=== PATIENT | male | born 1965 | race Caucasian/White ===

== ENCOUNTER 2016-06-21 18:54 | Observation (INO) | payer OTHER ==
[2016-06-21] MEDS ORDERED: NS 1,000 ML IV ONE (19:29)
[2016-06-21] MEDS ORDERED: HYDROmorphONE/DILAUDID 1 MG/ML SYR IVP ONE (19:29)
[2016-06-21] MEDS ORDERED: FAMOTIDINE 20 MG in NS 100 ML IV ONE (19:29)
[2016-06-21 19:46] LABS: % IMMATURE GRANULYOCYTES 0.2 % (0.0-1.1); ABSOLUTE IMMATURE GRANULOCYTES 0.02 10^3/uL (0.00-0.10); ADD DIFF? NO; ADD MORPH? NO; ADD SCAN? NO; ATYPICAL LYMPHOCYTE FLAG 30 (0-99); FRAGMENT RBC FLAG 0 (0-99); HEMATOCRIT 43.3 % (40.0-51.0); HEMOGLOBIN 15.1 g/dL (13.7-17.5); LEFT SHIFT FLG 0 (0-99); LIPEMIA HEMOLYSIS FLAG 90 (0-99); MEAN CELL HEMOGLOBIN CONCENTR. 34.9 g/dL (32.4-36.7); MEAN CELL VOLUME 94.5 fL (81.5-99.8); MEAN PLATELET VOLUME 10.4 fL (8.7-11.7); PLATELET CLUMPS FLAG 20 (0-99); PLATELET COUNT 232 10^3/uL (150-400); RED BLOOD CELL COUNT 4.58 10^6/uL (4.40-6.38); RED CELL DISTRIBUTION WIDTH 11.9 % (11.5-15.2)
[2016-06-21 20:00] LABS: ALANINE AMINOTRANSFERASE 32 IU/L (21-72); ALBUMIN 3.9 g/dL (3.5-5.0); ALKALINE PHOSPHATASE 54 IU/L (38-126); ANION GAP 15 mEq/L (8-16); ASPARTATE AMINOTRANSFERASE 19 IU/L (17-59); BILIRUBIN,TOTAL 0.7 mg/dL (0.1-1.4); BILIRUBIN-CONJUGATED 0.4 mg/dL (0.0-0.5); BILIRUBIN-UNCONJUGATED 0.3 mg/dL (0.0-1.1); CARBON DIOXIDE 24 mEq/l (22-31); CHLORIDE 104 mEq/L (97-110); CREATININE 1.1 mg/dL (0.7-1.3); GLOMERULAR FILTRATION RATE > 60; GLUCOSE 93 mg/dL (70-100); POTASSIUM 3.7 mEq/L (3.5-5.2); SODIUM 143 mEq/L (134-144); TOTAL PROTEIN 6.9 g/dL (6.3-8.2)
--- NOTE | 2016-06-21 20:06 | UCPHY ---
H & P Time Seen by Provider: 06/21/16 19:30 Patient Type: New HPI/ROS: HPI Gallbladder attack. 51-year-old male by private vehicle with his . This patient reports that he has had on and off biliary colic secondary to gallstones for years. He reports that usually the attacks last hour to up to a day and then resolved. He reports that he has had right upper quadrant pain identical to his previous gallbladder attacks ongoing now for 4-5 days. Last meal was about an hour prior to arrival. ROS: Constitutional: Intermittent fever, no chills. No weakness. Eyes: No discharge. No changes in vision. ENT: No sore throat. No nasal congestion or rhinorrhea. Respiratory: No cough. No shortness of breath. Cardiac: No chest pain, no palpitations. Gastrointestinal: As above, no vomiting, no diarrhea. Genitourinary: No hematuria. No dysuria or increased frequency with urination. Musculoskeletal: No back pain. No neck pain. No myalgias or arthralgias. Skin: No rashes. Neurological: No headache. No focal weakness or altered sensation. Past medical history: As above. Otherwise denies. Social history: Here with his . Physical Exam: General Appearance: Alert, no distress. This patient is responding to questions appropriately and in full sentences. This patient appears well- hydrated and well-nourished. Eyes: Pupils equal and round no pallor or injection. No lid edema, erythema or injection. Respiratory: There are no retractions, lungs are clear to auscultation with good air movement bilaterally. Cardiovascular: Regular rate and rhythm. No murmur. Gastrointestinal: Abdomen is soft with right upper quadrant tenderness on palpation, no masses, bowel sounds normal. No focal tenderness at McBurney's point. Positive Zazueta sign. Neurological: Motor sensory function is grossly intact. Cranial nerves are normal. Gait is normal. Skin: Warm and dry, no rashes. Musculoskeletal: Neck is supple and nontender. Extremities are symmetrical. All joints range without pain or impingement. Psychiatric: No agitation. No depression. Database: EKG: Imaging: Bedside ultrasound: Shows a swollen gallbladder, multiple free stones, probable stone lodged in the gallbladder neck. No free fluid. No wall thickening. Study limited secondary to quality of machine and lighting. Study performed and interpreted by myself. Procedures: Emergency department course: IV was placed. He was placed on a top executive. he was started on IV normal saline with 1 L to be given over the next hour. He was initially given 0.5 mg of IV hydromorphone and 20 mg of IV Pepcid. Blood work sent. 8:15 p.m., patient re-evaluated. Results of blood work discussed with him and his . Advised he go to the [facility] Emergency Department for formal ultrasound study to further evaluate his gallbladder. They are in agreement. His knows where the hospital is in will take him there immediately on discharge. I called the emergency department at [facility]. I spoke with physician accounts receivable assistant Ralph. His case was discussed. They are expecting him and will obtain a formal right upper quadrant ultrasound on his arrival. Differential Diagnosis: The differential diagnosis on this patient includes but is not limited to biliary colic, gallstones, early cholecystitis. This represents a partial list of diagnoses considered. These considerations are based on history, physical exam, past history, reassessment and diagnostic testing. Smoking Status: Never smoked Constitutional: Initial Vital Signs Temperature (C) 36.6 C 06/21/16 19:14 Heart Rate 80 06/21/16 19:14 Respiratory Rate 18 06/21/16 19:14 Blood Pressure 111/62 06/21/16 19:14 O2 Sat (%) 98 06/21/16 19:14 O2 Delivery Mode Room Air Allergies/Adverse Reactions: No Known Allergies Allergy (Unverified 06/21/16 19:13) Medical Decision Making - Data Points Laboratory Results: Laboratory Results 06/21/16 19:40 06/21/16 19:40 06/21/16 19:40 WBC 9.26 10^3/uL (3.80-9.50) RBC 4.58 10^6/uL (4.40-6.38) Hgb 15.1 g/dL (13.7-17.5) Hct 43.3 % (40.0-51.0) MCV 94.5 fL (81.5-99.8) MCH 33.0 pg (27.9-34.1) MCHC 34.9 g/dL (32.4-36.7) RDW 11.9 % (11.5-15.2) Plt Count 232 10^3/uL (150-400) MPV 10.4 fL (8.7-11.7) Neut % (Auto) 50.7 % (39.3-74.2) Lymph % (Auto) 34.7 % (15.0-45.0) [place] % (Auto) 12.1 % (4.5-13.0) Eos % (Auto) 1.8 % (0.6-7.6) Baso % (Auto) 0.5 % (0.3-1.7) Nucleat RBC Rel Count 0.0 % (0.0-0.2) Absolute Neuts (auto) 4.69 10^3/uL (1.70-6.50) Absolute Lymphs (auto) 3.21 H 10^3/uL (1.00-3.00) Absolute Monos (auto) 1.12 H 10^3/uL (0.30-0.80) Absolute Eos (auto) 0.17 10^3/uL (0.03-0.40) Absolute Basos (auto) 0.05 10^3/uL (0.02-0.10) Absolute Nucleated RBC 0.00 10^3/uL (0-0.01) Immature Gran % 0.2 % (0.0-1.1) Immature Gran # 0.02 10^3/uL (0.00-0.10) Sodium 143 mEq/L (134-144) Potassium 3.7 mEq/L (3.5-5.2) Chloride 104 mEq/L (97-110) Carbon Dioxide 24 mEq/l (22-31) Anion Gap 15 mEq/L (8-16) BUN 9 mg/dL (7-23) Creatinine 1.1 mg/dL (0.7-1.3) Estimated GFR > 60 Glucose 93 mg/dL (70-100) Calcium 9.0 mg/dL (8.5-10.4) Total Bilirubin 0.7 mg/dL (0.1-1.4) Conjugated Bilirubin 0.4 mg/dL (0.0-0.5) Unconjugated Bilirubin 0.3 mg/dL (0.0-1.1) AST 19 IU/L (17-59) ALT 32 IU/L (21-72) Alkaline Phosphatase 54 IU/L (38-126) Total Protein 6.9 g/dL (6.3-8.2) Albumin 3.9 g/dL (3.5-5.0) Lipase 100.0 IU/L (23-300) Medications Given: Discontinued Medications Hydromorphone HCl (Dilaudid) 0.5 mg IVP EDNOW ONE Stop: 06/21/16 19:30 Last Admin: 06/21/16 20:06 Dose: 0.5 mg Sodium Chloride (Ns) 1,000 mls @ 0 mls/hr IV ONCE ONE PRN Reason: Wide Open Stop: 06/21/16 19:30 Last Admin: 06/21/16 20:33 Dose: 1,000 mls Famotidine 20 mg/ Sodium (Chloride) 102 mls @ 408 mls/hr IV EDNOW ONE Stop: 06/21/16 19:43 Last Admin: 06/21/16 20:05 Dose: 102 mls Departure - Departure Disposition: [facility] Clinical Impression: Gallstones, Biliary colic Condition: Fair - PQRS PQRS Measurement: 134: Depression screening and followup, PRIME MD-PHQ2 (12 years and older) Over the last 2 weeks, how often have you been bothered by any of the following problems? 1. Feeling down, depressed, or hopeless? 2. Little interest or pleasure in doing things? Answered no to both questions. 130: Documentation of medications. Reviewed all patient medications, doses, route and frequency. 226: Do you smoke? No. 47: 65 and older: Advanced care planning. Patient designates surrogate decision maker as spouse. 51: 18 years old and older with diagnosis of COPD, spirometry performance. NA 52: 18 years old and older with COPD and symptoms of COPD or FEV1<60% predicted prescribed a B Agonist. NA
--- NOTE | 2016-06-21 21:09 | EDPHY ---
H & P Time Seen by Provider: 06/21/16 19:30 HPI/ROS: CHIEF COMPLAINT: Right upper quadrant abdominal pain HISTORY OF PRESENT ILLNESS: 51-year-old male in the emergency department via private vehicle complaining of 5 days of right upper quadrant abdominal pain. He has been experiencing similar pain for several years has had ultrasonography several years ago and told he had multiple gallstones. He was initially seen at [facility] this evening and sent to the emergency department for ultrasound. Bedside ultrasound was performed showing a swollen gallbladder with multiple stones and a possible stone lodged in the gallbladder neck. The patient describes 5 days of pain with intermittent nausea. Bowel movements normal. No radiation of pain. Last oral intake was steak at 6:00 p.m. tonight REVIEW OF SYSTEMS: A ten point review of systems was performed and is negative with the exception of the items mentioned in the HPI PAST MEDICAL & SURGICAL HISTORY: No pertinent medical or surgical history SOCIAL HISTORY: Nonsmoker PHYSICAL EXAM (Prior to examination, patient consented to physical exam, hands were washed and my usual and customary physical exam procedures followed) 1) GENERAL: Well-developed, well-nourished, alert and oriented. Appears to be in no acute distress. 2) HEAD: Normocephalic, atraumatic 3) HEENT: Pupils equal, round, reactive to light bilaterally. Sclera anicteric. 4) NECK: Full range of motion, no meningeal signs. 5) LUNGS: Clear auscultation bilaterally, no wheezes, no rhonchi, no retractions. 6) HEART: Regular rate and rhythm, no murmur, no heave, no gallop. 7) ABDOMEN: No guarding, negative McBurney's, positive Zazueta's, negative Rovsing's, negative peritoneal sign, 8) MUSCULOSKELETAL: Moving all extremities, no focal areas of tenderness, no obvious trauma. No peripheral edema or discoloration. 9) BACK: No CVA tenderness, no midline vertebral tenderness, no fluctuance, no step-off, no obvious trauma, no visual or palpable abnormality. 10) SKIN: No rash, no petechiae. 11) Psychiatric: Patient is oriented X 3, there is no agitation. DIFFERENTIAL DIAGNOSIS: no particular include but not limited to acute cholecystitis, biliary colic, cholelithiasis - Personal History Current Tetanus Diphtheria and Acellular Pertussis (TDAP): Yes - Medical/Surgical History Hx Asthma: No Hx Chronic Respiratory Disease: No Hx Diabetes: No Hx Cardiac Disease: No Hx Renal Disease: No Hx Cirrhosis: No Hx Alcoholism: No Hx HIV/AIDS: No Hx Splenectomy or Spleen Trauma: No Other PMH: GALL STONES DX 2010 - Social History Smoking Status: Never smoked Constitutional: Initial Vital Signs Temperature (C) 36.6 C 06/21/16 19:14 Heart Rate 80 06/21/16 19:14 Respiratory Rate 18 06/21/16 19:14 Blood Pressure 111/62 06/21/16 19:14 O2 Sat (%) 98 06/21/16 19:14 O2 Delivery Mode Room Air Allergies/Adverse Reactions: No Known Allergies Allergy (Unverified 06/21/16 19:13) Medical Decision Making ED Course/Re-evaluation: 9:09 p.m.: I have reviewed his old medical records. He last ate at 6:00 p.m. [employer]. Will obtain ultrasonography and re-evaluated. 9:57 p.m.: Discussed case Dr. Jacky Jensen in the ER. Discussed the imaging results with the patient. He complains of continued right upper quadrant pain. Consultation with Dr. Floyd Hanna who will evaluate the patient. 10:58 p.m.: Dr. Floyd Hanna will admit the patient. - Data Points Laboratory Results: Laboratory Results 06/21/16 19:40 06/21/16 19:40 06/21/16 19:40 WBC 9.26 10^3/uL (3.80-9.50) RBC 4.58 10^6/uL (4.40-6.38) Hgb 15.1 g/dL (13.7-17.5) Hct 43.3 % (40.0-51.0) MCV 94.5 fL (81.5-99.8) MCH 33.0 pg (27.9-34.1) MCHC 34.9 g/dL (32.4-36.7) RDW 11.9 % (11.5-15.2) Plt Count 232 10^3/uL (150-400) MPV 10.4 fL (8.7-11.7) Neut % (Auto) 50.7 % (39.3-74.2) Lymph % (Auto) 34.7 % (15.0-45.0) [place] % (Auto) 12.1 % (4.5-13.0) Eos % (Auto) 1.8 % (0.6-7.6) Baso % (Auto) 0.5 % (0.3-1.7) Nucleat RBC Rel Count 0.0 % (0.0-0.2) Absolute Neuts (auto) 4.69 10^3/uL (1.70-6.50) Absolute Lymphs (auto) 3.21 H 10^3/uL (1.00-3.00) Absolute Monos (auto) 1.12 H 10^3/uL (0.30-0.80) Absolute Eos (auto) 0.17 10^3/uL (0.03-0.40) Absolute Basos (auto) 0.05 10^3/uL (0.02-0.10) Absolute Nucleated RBC 0.00 10^3/uL (0-0.01) Immature Gran % 0.2 % (0.0-1.1) Immature Gran # 0.02 10^3/uL (0.00-0.10) Sodium 143 mEq/L (134-144) Potassium 3.7 mEq/L (3.5-5.2) Chloride 104 mEq/L (97-110) Carbon Dioxide 24 mEq/l (22-31) Anion Gap 15 mEq/L (8-16) BUN 9 mg/dL (7-23) Creatinine 1.1 mg/dL (0.7-1.3) Estimated GFR > 60 Glucose 93 mg/dL (70-100) Calcium 9.0 mg/dL (8.5-10.4) Total Bilirubin 0.7 mg/dL (0.1-1.4) Conjugated Bilirubin 0.4 mg/dL (0.0-0.5) Unconjugated Bilirubin 0.3 mg/dL (0.0-1.1) AST 19 IU/L (17-59) ALT 32 IU/L (21-72) Alkaline Phosphatase 54 IU/L (38-126) Total Protein 6.9 g/dL (6.3-8.2) Albumin 3.9 g/dL (3.5-5.0) Lipase 100.0 IU/L (23-300) Medications Given: Discontinued Medications Hydromorphone HCl (Dilaudid) 0.5 mg IVP EDNOW ONE Stop: 06/21/16 19:30 Last Admin: 06/21/16 20:06 Dose: 0.5 mg Sodium Chloride (Ns) 1,000 mls @ 0 mls/hr IV ONCE ONE PRN Reason: Wide Open Stop: 06/21/16 19:30 Last Admin: 06/21/16 20:33 Dose: 1,000 mls Famotidine 20 mg/ Sodium (Chloride) 102 mls @ 408 mls/hr IV EDNOW ONE Stop: 06/21/16 19:43 Last Admin: 06/21/16 20:05 Dose: 102 mls Departure - Departure Disposition: Home, Routine, Self-Care Clinical Impression: Gallstones, Biliary colic Condition: Fair Additional Instructions: Read and follow provided instructions. Go to the emergency department at [facility] for formal ultrasound as discussed to better evaluate your gallbladder.
--- NOTE | 2016-06-21 22:24 | US ---
Ultrasound Abdomen Limited Indication: Abdominal pain. TECHNIQUE: Orellana-scale and color imaging of the abdomen. FINDINGS: The aorta is mildly obscured by bowel gas. The liver is unremarkable. Portal and hepatic veins are patent. The gallbladder contains several stones, some of which do not completely fall out of the neck. The gallbladder wall is normal at 1.7 mm. The common bile duct is normal at 3.7 mm. There is no sonographic Zazueta sign. The right kidney measures 5.7 x 5.2 x 11.0 cm, with a 1.5-cm co rtex. IMPRESSION: Cholelithiasis, with incomplete movement of the gallbladder stones in the neck. No othe r evidence of cholecystitis. Critical results relayed by Dr. Hardwick to Savage Rosas PA-C, on June 21, 2016 at 2149 hours.
[2016-06-21] MEDS ORDERED: ceFAZolin 2 GM/DEXTROSE 100 ML IV ONE (22:44)
[2016-06-21] MEDS ORDERED: IOPAMIDOL (ISOVUE-300) 50 ML VIAL IV ONE (22:48)
[2016-06-21] MEDS ORDERED: LR 1,000 ML IV SCH (23:00)
--- NOTE | 2016-06-21 23:27 | CT ---
CT Scan of the Abdomen and Pelvis (With Contrast) Clinical Indications: Abdominal pain. COMPARISON: Ultrasound June 21, 2016. Technique: Dilute contrast was given orally prior to scanning. 90 mL of Isovue-300 were given intra venously by machine power injection. Multidetector helical CT imaging was performed from the diaphra gm to the symphysis pubis. Dose reduction techniques were utilized. Findings: Abdomen: The lung bases are clear, and there is no significant pleural fluid. The liver is normal. The biliary ducts are unremarkable. The gallbladder is moderately distended without pericholecystic fluid. The pancreas and spleen are normal. The adrenal glands and kidneys are normal. No adenopath y and no masses are found. No aneurysm of the abdominal aorta. Pelvis: The urinary bladder is unremarkable. No free fluid in the pelvis. No masses are identified. Bowel loops are normal. The appendix is visualized and normal. Impression: Moderate distention of the gallbladder without secondary signs of cholecystitis. Critical results relayed by Dr. Hardwick to Dr. Hanna June 21, 2016 2325 hours
--- NOTE | 2016-06-21 23:33 | GHP ---
[f rep st] HISTORY AND PHYSICAL DATE OF ADMISSION: 06/21/2016 CHIEF COMPLAINT: Abdominal pain. HISTORY OF PRESENT ILLNESS: This patient is a 51-year-old male with known gallstones who presents wi th a 5-day history of abdominal pain. The patient has been going to work this week, and has been eat ing, has had no emesis. The patient went to dinner this evening and had a couple of margaritas and s ome Finnish food, and decided to come to the emergency room because he was continuing to have abdomin al pain. The patient reports intermittent attacks in the past that have lasted up to 2 days, but thi s one lasted much longer, and he decided to be evaluated. He denies any emesis, hematemesis, melena, hematochezia. He has noted a change in the color of his stools, coming out a dark orangish color an d somewhat looser than normal. PAST MEDICAL HISTORY: Significant for gastroesophageal reflux disease. PAST SURGICAL HISTORY: He has never had surgery. ALLERGIES: He has no known drug allergies. SOCIAL HISTORY: He does smoke cigarettes and drinks 3 to 4 ounces of alcohol per night. He uses occ asional [id number] ranitidine or cimetidine. Patient is , accompanied by his . He works in [employer]. FAMILY HISTORY: Multiple family members have had gallstones. REVIEW OF SYSTEMS: Pertinent negatives are as per History of Present Illness. Patient had a negativ e colonoscopy 2 years ago. PHYSICAL EXAMINATION: GENERAL: A pleasant middle-aged gentleman who appears in no acute distress. VITAL SIGNS: Blood pressure is 114/81, heart rate is 70, respiratory rate is 16, O2 saturation is 96 % on room air, temperature is 36.7. HEENT: There is no scleral icterus. Mouth is significant for m ild coating of the tongue. NECK: Supple without adenopathy. LUNGS: Clear to auscultation with dis tant breath sounds. No wheezing, rales, or rhonchi. HEART: Regular in rate and rhythm without murm urs, rubs, or gallops. ABDOMEN: Soft, with hypoactive bowel sounds. Patient has focal right upper quadrant tenderness without guarding, but Zazueta sign is positive. There is mild tenderness below th is in the mid abdomen. There is no right flank or back tenderness. RECTAL: Exam is not repeated. IMAGING STUDIES: Patient's ultrasound was reviewed and shows multiple stones in the dependent portio n of the gallbladder with mild distention. There is no pericholecystic fluid. No wall thickening. LABORATORY STUDIES: WBC is 9.2, hemoglobin 15.1, hematocrit 43.3, platelets are 232,000. Sodium is 143, potassium 3.7, chloride 104, bicarb 24, BUN 9, creatinine 1.1. Bilirubin is 0.7, conjugated maryanne irubin 0.4, AST 19, ALT 32, alk phos 54, albumin 3.9, lipase is 100. IMPRESSION: 1. Gallstones. 2. Abdominal pain of 5 days' duration with normal LFTs and normal CBC. Clinical exam is somewhat co nsistent with a biliary etiology, though other etiologies cannot be entirely excluded. 3. History of gastroesophageal reflux disease. 4. Tobacco use. 5. Moderate alcohol use. RECOMMENDATIONS: As the patient has been drinking alcohol and eating solid food within the last few hours, I did not recommend emergency gallbladder surgery in the middle of the night, and recommended the patient be admitted for intravenous fluids, n.p.o. status to possibly prepare him for laparoscopi c cholecystectomy tomorrow. We will obtain a CT scan to confirm the diagnosis and exclude other etio logies. We discussed smoking cessation, and we will offer a nicotine patch. /[id number]/MODL
[2016-06-22 05:49] LABS: % IMMATURE GRANULYOCYTES 0.3 % (0.0-1.1); ABSOLUTE IMMATURE GRANULOCYTES 0.03 10^3/uL (0.00-0.10); ADD DIFF? NO; ADD MORPH? NO; ADD SCAN? NO; ATYPICAL LYMPHOCYTE FLAG 20 (0-99); FRAGMENT RBC FLAG 0 (0-99); HEMATOCRIT 40.8 % (40.0-51.0); LEFT SHIFT FLG 0 (0-99); LIPEMIA HEMOLYSIS FLAG 90 (0-99); MEAN CELL HEMOGLOBIN 33.1 pg (27.9-34.1); MEAN CELL HEMOGLOBIN CONCENTR. 34.3 g/dL (32.4-36.7); MEAN CELL VOLUME 96.5 fL (81.5-99.8); PLATELET CLUMPS FLAG 0 (0-99); PLATELET COUNT 199 10^3/uL (150-400); RED BLOOD CELL COUNT 4.23 10^6/uL (4.40-6.38); RED CELL DISTRIBUTION WIDTH 11.9 % (11.5-15.2)
[2016-06-22 06:02] LABS: ALBUMIN 3.3 g/dL (3.5-5.0); BILIRUBIN,TOTAL 0.5 mg/dL (0.1-1.4); BILIRUBIN-CONJUGATED 0.4 mg/dL (0.0-0.5); BILIRUBIN-UNCONJUGATED 0.1 mg/dL (0.0-1.1); TOTAL PROTEIN 5.7 g/dL (6.3-8.2)
[2016-06-22] MEDS ORDERED: FAMOTIDINE 20 MG/NACL 50 ML IV SCH (09:00)
--- NOTE | 2016-06-22 11:17 | SOAPPROG ---
[facility] Progress Note Assessment/Plan: Assessment: Plan: Subjective: chart reviewed, pt interviewed and examined. heart nml s1s2 no murmurs calli- tender ruq access: cholecystitis, cholelithiasis. plan; lap choly. risks and benefits discussed with pt and . Objective: Vital Signs Temp Pulse Resp BP Pulse Ox 36.9 C 57 L 14 142/83 H 95 06/22/16 11:12 06/22/16 11:12 06/22/16 11:12 06/22/16 11:12 06/22/16 11:12 Laboratory Results 06/22/16 05:00 06/21/16 06/22/16 06/23/16 05:59 05:59 05:59 Intake Total 1866 Balance 1866 ICD10 Worksheet Patient Problems: Problems Problem Status Diagnosed Biliary colic Acute Gallstones Acute
[2016-06-22] MEDS ORDERED: BUPIVACAINE/EPI 0.5% 30 ML SDV ONE (11:28)
[2016-06-22] MEDS ORDERED: SKIN ADHESIVE (DERMABOND) 1 EACH TP ONE (11:29)
[2016-06-22] MEDS ORDERED: PROPOFOL 200 MG/20 ML VIAL ONE (13:53)
[2016-06-22] MEDS ORDERED: ROCURONIUM 50 MG/5 ML VIAL ONE (13:53)
[2016-06-22] MEDS ORDERED: fentaNYL 250 MCG/5 ML INJ ONE (13:53)
[2016-06-22] MEDS ORDERED: LIDOCAINE 2% 5 ML SDV ONE (13:53)
[2016-06-22] MEDS ORDERED: ONDANSETRON 4 MG/2 ML VIAL ONE (13:53)
[2016-06-22] MEDS ORDERED: DEXAMETHASONE 4 MG/ML VIAL ONE ×2 (13:53)
[2016-06-22] MEDS ORDERED: MIDAZOLAM 2 MG/2 ML VIAL ONE (13:55)
[2016-06-22] MEDS ORDERED: CEFAZOLIN 2 GM/DEXTROSE/100 ML BAG IV ONE (14:00)
[2016-06-22] MEDS ORDERED: GLYCOPYRROLATE 0.2 MG/1 ML VIAL ONE ×2 (14:58)
[2016-06-22] MEDS ORDERED: NEOSTIGMINE METHYLSULFATE 5 MG/5 ML SYR ONE (14:58)
[2016-06-22] MEDS ORDERED: ONDANSETRON 4 MG/2 ML VIAL IVP PRN (15:25)
--- NOTE | 2016-06-22 15:25 | POSTOPPROG ---
Post Op Note Date of Operation: 06/22/16 Surgeon: Anmol Salinas Dock Grader: maura fleming Anesthesiologist: amber galicia Anesthesia: GET(General Endotracheal) Pre-op Diagnosis: cholelithiasis Post-op Diagnosis: same, also umbilical hernia Indication: same Procedure: lap choly, umblical henria repair Findings: hydrops of gallbladder, umblical hernia Inf/Abcess present in the surg proc area at time of surgery?: No EBL: Minimal Complications: none Specimen(s): gallbladder
[2016-06-22] MEDS ORDERED: LR 1,000 ML IV SCH (15:30)
--- NOTE | 2016-06-22 15:37 | GOP ---
[f rep st] OPERATIVE REPORT DATE OF OPERATION: SURGEON: Anmol Salinas MD RISK MANAGEMENT MANAGER: ADELA Ruelas. PREOPERATIVE DIAGNOSIS: Cholelithiasis, cholecystitis. POSTOPERATIVE DIAGNOSIS: 1. Cholelithiasis, cholecystitis. 2. Hydrops in the gallbladder. 3. Umbilical hernia. PROCEDURE PERFORMED: 1. Laparoscopic cholecystectomy. 2. Incidental umbilical hernia repair. FINDINGS: INDICATIONS: A 51-year-old male with 5 days of right upper quadrant pain. Distended gallbladder. Cholelithiasis. A small umbilical hernia is noted. DESCRIPTION OF PROCEDURE: PROCEDURE: General anesthetic. The abdomen scrubbed with ChloraPrep, draped in the usual sterile fashion. A transumbilical was made, the hernia sac freed up and excised, and then a Veress needle used to achieve a pneumoperitoneum. Eventually a 12 mm port was placed through the hernia defect and then two 5 mm ports in the upper abdomen. The gallbladder was quite distended. It was aspirated with an 18-gauge needle for 50 mL of clear fluid and was still quite distended. Eventually the gallbladder was pushed cephalad, and a lot of adhesions were identified the Melany pouch area. These were carefully lysed with sharp dissection such that the cystic artery was identified , clipped, and divided. The cystic plate was cleared off between the cystic duct and the liver bed, ensuring there were no other ductal structures. The cystic duct was massaged to make sure there was no stone in it, then clipped and divided. The gallbladder was removed from below upward with electrocautery , eventually detached, placed in an Endopouch, and extracted from the fascial defect at the umbilicus. This defect was closed with a series of figure-of- eight #0 Vicryl sutures. All gas and fluid had been vented from the abdomen. Skin incisions were closed with 4-0 Monocryl and Dermabond. The patient tolerated the procedure well. /[id number]/MODL MTDD
--- NOTE | 2016-06-22 16:02 | GDS ---
[f rep st] DISCHARGE SUMMARY HISTORY OF PRESENT ILLNESS: The patient was admitted with right upper quadrant pain. HOSPITAL COURSE: The patient underwent a laparoscopic cholecystectomy. He was discharged when takin g fluids. DISPOSITION: Home. Follow up with Dr. Serrano within a week. /[id number]/MODL
[2016-06-22 16:14] VITALS: RESP 16
[2016-06-22] MEDS ORDERED: HYDROCODONE/APAP 5/325 TAB PO PRN (17:31)
[2016-06-22 19:17] VITALS: BP 113/73; PULSE 65; TEMP 98.3; O2SAT 94
== END 2016-06-22 19:24 | disposition home or self-care (01) ==
LOC: CED 18:54 → INTOOBSV 22:47 → F3E 23:17
PROVIDERS: ADMIT Surgery; ATTEND Surgery
PROC: 0WQF0ZZ Repair Abdominal Wall, Open Approach (ICD-10-PCS; principal; 2016-06-22 14:00)
PROC: 0FT44ZZ Resection of Gallbladder, Percutaneous Endoscopic Approach (ICD-10-PCS; principal; 2016-06-22 14:00)
DX: K80.11 Calculus of gallbladder with chronic cholecystitis with obstruction (principal); K42.9 Umbilical hernia without obstruction or gangrene; K21.9 Gastro-esophageal reflux disease without esophagitis; F17.210 Nicotine dependence, cigarettes, uncomplicated
CPT/HCPCS: 47562; 49585; 74177; 76705; 96361; 96365; 96374; 96375; 99203; 99285; G0378; 80048-PO; 80076-PO; 83690-PO; 85025-PO; G0463-PO; J0690; J1100; J1170; J2250; J2405; J2704; J2710; J3010; Q9967